=== PATIENT | female | born 1955 | race Caucasian/White ===

== ENCOUNTER 2023-02-27 18:14 | Emergency (ER) | payer MEDICARE, BC ==
[~2023-02-27] VITALS: Ht 167.6 cm; Wt 61.2 kg
[2023-02-27] MEDS ORDERED: OXYCODONE/APAP 5-325 MG TABLET PO ONE (18:45)
[2023-02-27] MEDS ORDERED: OXYCODONE/APAP 5-325 MG TABLET ONE (18:52)
[2023-02-27] MEDS ORDERED: ACET1TAB23 PO (19:32)
[2023-02-27] MEDS ORDERED: ONDANSETRON HCL 4 MG TABLET ONE (19:33)
[2023-02-27] MEDS ORDERED: ONDANSETRON HCL 4 MG TABLET PO ONE (19:45)
[2023-02-27 19:58] VITALS: BP 118/71; TEMP 98.1; O2SAT 99
== END 2023-02-27 19:59 | disposition home or self-care (01) ==
LOC: ER 18:14
DX: S42.292A Other displaced fracture of upper end of left humerus, initial encounter for closed fracture (principal); S00.03XA Contusion of scalp, initial encounter; Z88.1 Allergy status to other antibiotic agents; Z79.899 Other long term (current) drug therapy; W18.39XA Other fall on same level, initial encounter; Y93.89 Activity, other specified; Y92.89 Other specified places as the place of occurrence of the external cause; Y99.8 Other external cause status
CPT/HCPCS: 73030; A4663; Q0162